=== PATIENT | female | born 1980 | race Caucasian/White ===

== ENCOUNTER 2021-01-13 01:55 | Emergency (ER) | payer OTHER ==
[2021-01-13] MEDS ORDERED: DIPHENHYDRAMINE 50 MG/ML VIAL ONE (03:37)
[2021-01-13] MEDS ORDERED: METOCLOPRAMIDE 10 MG/2mL INJ ONE (03:37)
[2021-01-13] MEDS ORDERED: NA CHLORIDE 0.9% 1,000 ML ONE (03:38)
[2021-01-13] MEDS ORDERED: KETOROLAC 30 MG/ML INJ ONE (03:38)
[2021-01-13 03:42] LABS: Urine Blood Negative (Negative); Urine Glucose Negative (Negative); Urine Protein Negative (Negative)
[2021-01-13 03:53] LABS: Absolute Lymphocytes (CBC) 2.2 K/uL (0.7-4.9); Basophils % 0.3 % (0-1.3); Hematocrit 37.2 % (36.0-45.0); Lymphocytes % 22.3 % (15.3-44.8); MPV 8.7 fL (7.6-11.3); RBC Red Blood Cell Count 4.27 M/uL (3.86-4.86)
[2021-01-13 04:19] LABS: ALT/SGPT 21 U/L (12-78); AST/SGOT 14 U/L (15-37); Albumin 3.9 g/dL (3.4-5.0); Alkaline Phosphatase 71 U/L (45-117); BUN Blood Urea Nitrogen 12 mg/dL (7-18); Bicarbonate 27 mmol/L (21-32); Bilirubin Total 0.4 mg/dL (0.2-1.0); Glucose Level 100 mg/dL (74-106); Lipase 160 U/L (73-393); Potassium 3.6 mmol/L (3.5-5.1); Protein, Total 7.8 g/dL (6.4-8.2); Sodium Level 139 mmol/L (136-145)
--- NOTE | 2021-01-13 06:05 | ER ---
Nurse's Notes [facility] Name: Joselyn Kim Age: 40 yrs Sex: Female : 1980 Arrival Date: 01/13/2021 Time: 01:56 Bed 13 Private MD: Diagnosis: Headache;Vomiting Presentation: 01/13 02:02 Chief complaint: Patient states: earlier today she got a really bad headache then she bb noticed one eye didn't open as much at the other and her smile was asymmetrical she called her doctor's office who gave her appointment in the morning but told her to go to the ED if symptoms worsened. She vomited again tonight and her BP was high for her. Coronavirus screen: At this time, the client does not indicate any symptoms associated with coronavirus-19. Ebola Screen: No symptoms or risks identified at this time. Initial Sepsis Screen: Does the patient meet any 2 criteria? No. Patient's initial sepsis screen is negative. Does the patient have a suspected source of infection? No. Patient's initial sepsis screen is negative. Risk Assessment: Do you want to hurt yourself or someone else? Patient reports no desire to harm self or others. Onset of symptoms was January 12, 2021 at 12:30. 02:02 Method Of Arrival: Ambulatory bb 02:02 Acuity: RON 3 bb Triage Assessment: 02:07 Headache History: The patient has had previous headaches and this one is different than bb previous episodes. General: Appears in no apparent distress. Behavior is calm, cooperative. Pain: Complains of pain in head Pain currently is 2 out of 10 on a pain scale. Pain began suddenly, Also complains of no other associated symptoms. Neuro: Level of Consciousness is awake, alert, obeys commands, Oriented to person, place, time, situation. Cardiovascular: Capillary refill < 3 seconds Patient's skin is warm and dry. Respiratory: Respiratory effort is even, unlabored, Respiratory pattern is regular. GI: Reports nausea. Derm: Skin is pink, warm \T\ dry. Musculoskeletal: Circulation, motion, and sensation intact. 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 - Social history:: Smoking status: Patient denies any tobacco usage or history of. - Family history:: not pertinent. Screenin:53 Abuse screen: Denies threats or abuse. Denies injuries from another. Nutritional ak2 screening: No deficits noted. Tuberculosis screening: No symptoms or risk factors identified. Fall Risk None identified. Assessment: 05:46 Reassessment: Patient and/or family updated on plan of care and expected duration. Pain ak2 level reassessed. General: Appears. Pain: Denies pain. Neuro: No deficits noted. Cardiovascular: No deficits noted. Respiratory: No deficits noted. Vital Signs: 02:02 BP 123 / 94; Pulse 76; Resp 16 S; Temp 98.1(O); Pulse Ox 100% on R/A; Weight 62.6 kg bb (R); Height 5 ft. 3 in. (160.02 cm) (R); Pain 2/10; 03:52 BP 119 / 87; Pulse 68; Resp 18; Pulse Ox 98% on R/A; ak2 05:47 BP 113 / 76; Pulse 70; Resp 18; Pulse Ox 98% on R/A; ak2 02:02 Body Mass Index 24.45 (62.60 kg, 160.02 cm) [place] Coma Score: 03:07 Eye Response: spontaneous(4). Verbal Response: oriented(5). Motor Response: obeys sadiq commands(6). Total: 15. NIH Stroke Scale Scores: 03:04 NIHSS Score: [address] [facility] ED Course: 01:56 Patient arrived in ED. am2 02:07 Triage completed. bb 02:07 Arm band placed on. bb 02:38 Wood Moe MD is Attending Physician. sadiq 03:53 No apparent distress. ak2 03:53 Patient has correct armband on for positive identification. ak2 03:53 No provider procedures requiring assistance completed. Inserted saline lock: 18 gauge ak2 in left antecubital area, using aseptic technique. 05:13 CT Head Brain wo Cont In Process Unspecified. EDMS 05:13 CT Head Angio In Process Unspecified. EDMS 06:04 Aleksander Cade MD is Referral Physician. [facility] 06:23 IV discontinued. ak2 Administered Medications: 03:19 Drug: NS 0.9% 1000 ml Route: IV; Rate: 1 bolus; Site: left antecubital; ak2 03:19 Drug: Ketorolac 30 mg Route: IVP; Site: left antecubital; ak2 03:19 Drug: Benadryl (diphenhydrAMINE) 50 mg Route: IVP; Site: left antecubital; ak2 03:19 Drug: Reglan (metoCLOPramide) 10 mg Route: IVP; Site: left antecubital; ak2 Outcome: 06:04 Discharge ordered by . [facility] 06:23 Discharged to home ambulatory. ak2 06:23 Condition: good 06:23 Discharge instructions given to patient. 06:24 Patient left the ED. ak2 NIH Stroke Scale - NIH Stroke Score Date: 01/13/2021 Time: 03:04 Total Score = 0 1a. Level of Consciousness (LOC) - 0(Alert) 1b. Level of Consciousness (LOC) (Month \T\ Age) - 0(Both) 1c. LOC Commands (Open \T\ Closes Eyes/Umbrella Frame Maker) - 0(Both) 2. Best Gaze (Lateral Gaze Paresis) - 0(Normal) 3. Visual Field Loss - 0(No visual loss) 4. Facial Palsy - 0(Normal) 5a. Left Arm: Motor (10-second hold) - 0(No drift) 5b. Right Arm: Motor (10-second hold) - 0(No drift) 6a. Left Leg: Motor (5-second hold - always test supine) - 0(No drift) 6b. Right Leg: Motor (5-second hold - always test supine) - 0(No drift) 7. Limb Ataxia (finger/nose \T\ heel/pereira - test with eyes open) - 0(Absent) 8. Sensory Loss (pinprick arms/legs/face) - 0(Normal) 9. Best Language: Aphasia (description/naming/reading) - 0(No aphasia) 10. Dysarthria (speech clarity - read or repeat words) - 0(Normal) 11. Extinction and Inattention (visual/tactile/auditory/spatial/personal) - 0(No abnormality) Initials: sadiq Signatures: Dispatcher [employer] Wood Lawson MD MD cha Ballard, Brenda, Kelsey Ibarra RN, Anthony ak2
--- NOTE | 2021-01-13 06:05 | EDPHYS ---
Physician Documentation [facility] Name: Joselyn Kim Age: 40 yrs Sex: Female : 1980 Arrival Date: 01/13/2021 Time: 01:56 Bed 13 Private MD: ED Physician Wood Moe HPI: 01/13 03:04 This 40 yrs old Female presents to ER via Ambulatory with complaints of sadiq Headache, Nausea/Vomiting, Facial Droop, S/S of Possible Stroke. 03:04 The patient complains of pain to the top of head, forehead, left frontal area, left sadiq side of the back of head, left occipital area, left base of the skull, right frontal area, right side of the back of head, right occipital area and right base of the skull. The patient describes the headache as aching, a pressure. Onset: The symptoms/episode began/occurred yesterday. Associated signs and symptoms: Pertinent positives: nausea, vomiting. Severity of symptoms: At its worst the pain was moderate, in the emergency department the pain is unchanged. Headache History: The patient has had previous headaches and this one is similar to previous episodes. The symptoms are alleviated by nothing. the symptoms are aggravated by nothing. The patient has experienced similar episodes in the past, multiple times. 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 - Social history:: Smoking status: Patient denies any tobacco usage or history of. - Family history:: not pertinent. ROS: 03:04 Constitutional: Negative for fever, chills, and weight loss, Eyes: Negative for injury, sadiq pain, redness, and discharge, ENT: Negative for injury, pain, and discharge, Neck: Negative for injury, pain, and swelling, Cardiovascular: Negative for chest pain, palpitations, and edema, Respiratory: Negative for shortness of breath, cough, wheezing, and pleuritic chest pain, Back: Negative for injury and pain, : Negative for injury, bleeding, discharge, and swelling, MS/Extremity: Negative for injury and deformity, Skin: Negative for injury, rash, and discoloration, Psych: Negative for depression, anxiety, suicide ideation, homicidal ideation, and hallucinations, Allergy/Immunology: Negative for hives, rash, and allergies, Endocrine: Negative for neck swelling, polydipsia, polyuria, polyphagia, and marked weight changes, Hematologic/Lymphatic: Negative for swollen nodes, abnormal bleeding, and unusual bruising. 03:04 Abdomen/GI: Positive for nausea and vomiting. 03:04 Neuro: Positive for headache. Exam: 03:04 Constitutional: This is a well developed, well nourished patient who is awake, alert, sadiq and in no acute distress. Head/Face: Normocephalic, atraumatic. Eyes: Pupils equal round and reactive to light, extra-ocular motions intact. Lids and lashes normal. Conjunctiva and sclera are non-icteric and not injected. Cornea within normal limits. Periorbital areas with no swelling, redness, or edema. ENT: Nares patent. No nasal discharge, no septal abnormalities noted. Tympanic membranes are normal and external auditory canals are clear. Oropharynx with no redness, swelling, or masses, exudates, or evidence of obstruction, uvula midline. Mucous membranes moist. Neck: Trachea midline, no thyromegaly or masses palpated, and no cervical lymphadenopathy. Supple, full range of motion without nuchal rigidity, or vertebral point tenderness. No Meningismus. Chest/axilla: Normal chest wall appearance and motion. Nontender with no deformity. No lesions are appreciated. Cardiovascular: Regular rate and rhythm with a normal S1 and S2. No gallops, murmurs, or rubs. Normal PMI, no JVD. No pulse deficits. Respiratory: Lungs have equal breath sounds bilaterally, clear to auscultation and percussion. No rales, rhonchi or wheezes noted. No increased work of breathing, no retractions or nasal flaring. Abdomen/GI: Soft, non-tender, with normal bowel sounds. No distension or tympany. No guarding or rebound. No evidence of tenderness throughout. Back: No spinal tenderness. No costovertebral tenderness. Full range of motion. Skin: Warm, dry with normal turgor. Normal color with no rashes, no lesions, and no evidence of cellulitis. MS/ Extremity: Pulses equal, no cyanosis. Neurovascular intact. Full, normal range of motion. Neuro: Awake and alert, GCS 15, oriented to person, place, time, and situation. Cranial nerves II-XII grossly intact. Motor strength 5/5 in all extremities. Sensory grossly intact. Cerebellar exam normal. Normal gait. Psych: Awake, alert, with orientation to person, place and time. Behavior, mood, and affect are within normal limits. 03:44 Neuro: Cranial nerves: grossly normal, is grossly normal based on the patient's age, no sadiq acute changes, extraocular movements are intact, Facial palsy and sensory deficits are absent. no gross hearing deficit,. Nystagmus is absent. Vital Signs: 02:02 BP 123 / 94; Pulse 76; Resp 16 S; Temp 98.1(O); Pulse Ox 100% on R/A; Weight 62.6 kg bb (R); Height 5 ft. 3 in. (160.02 cm) (R); Pain 2/10; 03:52 BP 119 / 87; Pulse 68; Resp 18; Pulse Ox 98% on R/A; ak2 05:47 BP 113 / 76; Pulse 70; Resp 18; Pulse Ox 98% on R/A; ak2 02:02 Body Mass Index 24.45 (62.60 kg, 160.02 cm) bb NIH Stroke Scale Scores: 03:04 NIHSS Score: 0 sadiq [place] Coma Score: 03:07 Eye Response: spontaneous(4). Verbal Response: oriented(5). Motor Response: obeys sadiq commands(6). Total: 15. MDM: 02:38 Patient medically screened. sadiq 03:07 Differential diagnosis: cerebral vascular accident, hypertensive headache, sinusitis, sadiq subarachnoid bleed, subdural hematoma, trigeminal neuralgia, vasomotor headache. Data reviewed: vital signs, nurses notes, lab test result(s), radiologic studies. Data interpreted: pvc monitor: rate is 76 beats/min, rhythm is regular, Pulse oximetry: on room air is 100 %. Test interpretation: by ED physician or midlevel provider: ECG, plain radiologic studies. Counseling: I had a detailed discussion with the patient and/or guardian regarding: the historical points, exam findings, and any diagnostic results supporting the discharge/admit diagnosis, lab results, radiology results, the need for outpatient follow up, for definitive care, a family practitioner, a neurologist. 01/13 03:04 Order name: CBC with Diff; Complete Time: 04:10 [facility] 01/13 03:04 Order name: Comprehensive Metabolic Panel; Complete Time: 06:04 [facility] 01/13 03:04 Order name: Lipase; Complete Time: 06:04 [facility] 01/13 03:04 Order name: CT Head Brain wo Cont [facility] 01/13 03:42 Order name: Urine Dipstick-Ancillary EDMS 01/13 03:44 Order name: Urine --Ancillary (enter results); Complete Time: 06:04 tt3 01/13 03:04 Order name: Urine Dipstick-Ancillary (obtain specimen); Complete Time: 03:43 [facility] 01/13 03:04 Order name: CT Head Angio [facility] 01/13 03:04 Order name: Oxygen [facility] 01/13 03:44 Order name: Urine Test (obtain specimen); Complete Time: 03:44 tt3 Administered Medications: 03:19 Drug: NS 0.9% 1000 ml Route: IV; Rate: 1 bolus; Site: left antecubital; ak2 03:19 Drug: Ketorolac 30 mg Route: IVP; Site: left antecubital; ak2 03:19 Drug: Benadryl (diphenhydrAMINE) 50 mg Route: IVP; Site: left antecubital; ak2 03:19 Drug: Reglan (metoCLOPramide) 10 mg Route: IVP; Site: left antecubital; ak2 Disposition Summary: 01/13/21 06:04 Discharge Ordered Location: Home sadiq Problem: new sadiq Symptoms: have improved sadiq Condition: Stable sadiq Diagnosis - Headache sadiq - Vomiting sadiq Followup: sadiq - With: Private Physician - When: 2 - 3 days - Reason: Recheck today's complaints, Continuance of care, Re-evaluation by your physician Followup: sadiq - With: - When: 2 - 3 days - Reason: Recheck today's complaints, Re-evaluation by your physician Discharge Instructions: - Discharge Summary Sheet sadiq - General Headache Without Cause sadiq - Nausea and Vomiting, Adult sadiq - Nausea and Vomiting, Adult, [id number] sadiq - General Headache Without Cause, [id number] sadiq Forms: - Medication Reconciliation Form sadiq - Thank You Letter sadiq - Antibiotic Education sadiq - Prescription Opioid Use sadiq Prescriptions: - Fioricet with Codeine [id number] mg Oral capsule - take 1 capsule by ORAL route every 4 hours as needed not to exceed 6 capsules sadiq per 24hrs; 15 capsule; Refills: 0, Product Selection Permitted - Zofran 4 mg Oral Tablet - take 1 tablet by ORAL route every 12 hours As needed; 20 tablet; Refills: 0, sadiq Product Selection Permitted NIH Stroke Scale - NIH Stroke Score Date: 01/13/2021 Time: 03:04 Total Score = 0 1a. Level of Consciousness (LOC) - 0(Alert) 1b. Level of Consciousness (LOC) (Month \T\ Age) - 0(Both) 1c. LOC Commands (Open \T\ Closes Eyes/Education Professor) - 0(Both) 2. Best Gaze (Lateral Gaze Paresis) - 0(Normal) 3. Visual Field Loss - 0(No visual loss) 4. Facial Palsy - 0(Normal) 5a. Left Arm: Motor (10-second hold) - 0(No drift) 5b. Right Arm: Motor (10-second hold) - 0(No drift) 6a. Left Leg: Motor (5-second hold - always test supine) - 0(No drift) 6b. Right Leg: Motor (5-second hold - always test supine) - 0(No drift) 7. Limb Ataxia (finger/nose \T\ heel/pereira - test with eyes open) - 0(Absent) 8. Sensory Loss (pinprick arms/legs/face) - 0(Normal) 9. Best Language: Aphasia (description/naming/reading) - 0(No aphasia) 10. Dysarthria (speech clarity - read or repeat words) - 0(Normal) 11. Extinction and Inattention (visual/tactile/auditory/spatial/personal) - 0(No abnormality) Initials: [facility] Signatures: Dispatcher [employer] Wood Lawson MD MD cha Ballard, Brenda, RN RN bb Jevon Robles tt3 Misael [email or web address]
[2021-01-13 06:39] VITALS: TEMP 98.1
[2021-01-13 06:48] VITALS: O2SAT 98
[2021-01-13 06:49] VITALS: BP 113/76
--- NOTE | 2021-01-13 14:12 | RAD REPORT ---
EXAM DESCRIPTION: CT - Head Brain Wo Cont - 01/13/2021 7:15 am CLINICAL HISTORY: PAIN COMPARISON: None available TECHNIQUE: Axial CT of the head obtained from the skull apex to the skull base without contrast. Thi s exam was performed according to our departmental dose-optimization program, which includes automate d exposure control, adjustment of the mA and/or kV according to patient size and/or use of iterative reconstruction technique. FINDINGS: No acute intracranial hemorrhage identified. No mass, mass effect, shift of the midline, a bnormal extra-axial fluid collection or CT evidence of acute ischemic change identified. The ventricu lar system is unremarkable. No acute abnormalities of the supratentorial white matter, basal gangli a, cerebellum, or brainstem. The visualized paranasal sinuses and the mastoid air cells are relatively well aerated. No skull fr acture identified. Visualized orbits and globes are unremarkable. IMPRESSION: 1. No acute intracranial abnormality identified. Electronically signed by: Felipe Damian 01/13/2021 6:00 AM CDT Due to temporary technical issues with the PACS/Fluency reporting system, reports are being signed by the in house radiologist without review as a courtesy to ensure prompt reporting. The interpreting r adiologist is fully responsible for the content of the report.
--- NOTE | 2021-01-13 14:13 | RAD REPORT ---
EXAM DESCRIPTION: CT - Head angio - 01/13/2021 6:29 am CLINICAL HISTORY: 40 years, Female, Dizziness;Headache COMPARISON: None. TECHNIQUE: Axial CTA images of the head obtained following the uncomplicated intravenous administrat ion of iodinated contrast. 3-D/MIP reformatted images available. This exam was performed according to our departmental dose-optimization program, which includes automated exposure control, adjustment of the mA and/or kV according to patient size and/or use of iterative reconstruction technique. FINDINGS: CTA head: In the anterior circulation, the intracranial internal carotid arteries have normal course and calibe r. The internal carotid arteries bifurcate into widely patent A1 and M1 segments of the anterior and middle cerebral arteries respectively. No evidence of flow-limiting stenosis, aneurysm, occlusion, or dissection in the anterior circulation. The anterior communicating artery is patent. In the posterior circulation, the intracranial vertebral arteries combine to form a widely patent bas ilar artery. The basilar artery terminates predominantly in the left SEAT JOINER. The right SEAT JOINER is a or igin. No evidence of stenosis, aneurysm, occlusion, or dissection in the posterior circulation. No definite acute intracranial abnormality identified. No acute abnormality of the osseous calvarium. Paranasal sinuses and mastoid air cells are well aerated. IMPRESSION: 1. No occlusion, stenosis, or aneurysm in the intracranial arterial circulation. Electronically signed by: Felipe Damian 01/13/2021 6:11 AM CDT Due to temporary technical issues with the PACS/Fluency reporting system, reports are being signed by the in house radiologist without review as a courtesy to ensure prompt reporting. The interpreting r adiologist is fully responsible for the content of the report.
== END 2021-01-13 06:24 | disposition home or self-care (01) ==
LOC: ER 01:55
DX: R51.9 Headache, unspecified (principal); R11.10 Vomiting, unspecified
CPT/HCPCS: 85025; 36415; 81025; 81003; 83690; 80053; 70450; 70496; Q9967; J2765; J1200; J7030; 96374; 96375; 99283